=== PATIENT | female | born 1945 | race Caucasian/White ===

== ENCOUNTER 2018-05-24 09:30 | Inpatient (IN) | payer OTHER ==
[~2018-05-24] VITALS: Ht 157.5 cm; Wt 54.9 kg
[2018-05-24] MEDS ORDERED: NEURONTIN300 MG (16:08)
[2018-05-24] MEDS ORDERED: SINGULAIR4 M1 (16:08)
[2018-06-05] MEDS ORDERED: DOCUSATE SODIU100 MG PO (17:43)
[2018-06-05] MEDS ORDERED: GABAPENTIN800 MG PO (17:43)
[2018-06-05] MEDS ORDERED: COLACE100 MG PO (17:44)
[2018-06-05] MEDS ORDERED: CLONAZEPAM1 MG PO (17:44)
[2018-06-05] MEDS ORDERED: PERCOCET 5-3251 EACH PO (17:44)
[2018-06-05] MEDS ORDERED: AMOX-CLAV 875-1 EACH PO (17:44)
[2018-06-06] MEDS ORDERED: ZOFRAN ODT4 MG PO (08:07)
== END 2018-06-06 14:17 | disposition home or self-care (01) | DRG 455 ==
LOC: SURH 06-04 09:30 → O/R 06-05 05:00 → SURH 06-05 09:30
PROVIDERS: Orthopaedic Surgery Orthopaedic Surgery of the Spine
PROC: 0SG1071 Fusion of 2 or more Lumbar Vertebral Joints with Autologous Tissue Substitute, Posterior Approach, Posterior Column, Open Approach (ICD-10-PCS; 2018-06-05)
PROC: 0SG10AJ Fusion of 2 or more Lumbar Vertebral Joints with Interbody Fusion Device, Posterior Approach, Anterior Column, Open Approach (ICD-10-PCS; 2018-06-05)
PROC: 0SG1071 Fusion of 2 or more Lumbar Vertebral Joints with Autologous Tissue Substitute, Posterior Approach, Posterior Column, Open Approach (ICD-10-PCS; 2018-06-05)
PROC: 0ST20ZZ Resection of Lumbar Vertebral Disc, Open Approach (ICD-10-PCS; 2018-06-05)
PROC: 07DS3ZZ Extraction of Vertebral Bone Marrow, Percutaneous Approach (ICD-10-PCS; 2018-06-05)
PROC: 0SG10A0 Fusion of 2 or more Lumbar Vertebral Joints with Interbody Fusion Device, Anterior Approach, Anterior Column, Open Approach (ICD-10-PCS; principal; 2018-06-05 10:45)
DX: M47.816 Spondylosis without myelopathy or radiculopathy, lumbar region (principal); M48.061 Spinal stenosis, lumbar region without neurogenic claudication; M43.16 Spondylolisthesis, lumbar region; M51.36 Other intervertebral disc degeneration, lumbar region; M41.86 Other forms of scoliosis, lumbar region; I10 Essential (primary) hypertension